=== PATIENT | male | born 1960 | race Caucasian/White ===

== ENCOUNTER 2018-08-06 11:37 | Emergency (ER) | payer BC, OTHER ==
[2018-08-06 12:46] LABS: BEDSIDE GLUCOSE 90 MG/DL (70-105)
[2018-08-06 12:48] LABS: BASO % 0.4 % (0.0-1.0); EOS # 0.1 10^3/uL (0.0-0.50); EOS % 0.8 % (0.0-3.0); HEMATOCRIT 47.2 % (42.0-52.0); HEMOGLOBIN 16.4 g/dl (13.5-17.5); IMMATURE GRANULOCYTE % 0.1 % (0-3.0); LYMPH # 1.5 10^3/uL (1.5-4.5); LYMPH % 19.8 % (24.0-44.0); MEAN CORPUSCULAR HEMOGLOBIN 31.8 pg (27.0-33.0); MEAN CORPUSCULAR HGB CONC 34.7 g/dl (32.0-36.5); MEAN CORPUSCULAR VOLUME 91.7 fl (80.0-96.0); MONO # 0.5 10^3/uL (0.0-0.8); MONO % 7.1 % (0.0-5.0); NEUTROPHILS # 5.5 10^3/uL (1.8-7.7); NEUTROPHILS % 71.8 % (36.0-66.0); PLATELET COUNT, AUTOMATED 244 10^3/uL (150-450); RED BLOOD COUNT 5.15 10^6/uL (4.30-6.10); RED CELL DISTRIBUTION WIDTH 12.1 % (11.5-14.5); WHITE BLOOD COUNT 7.6 10^3/uL (4.0-10.0)
[2018-08-06 13:28] LABS: ANION GAP 8 MEQ/L (8-16); BLOOD UREA NITROGEN 20 MG/DL (7-18); CALCIUM LEVEL 8.9 MG/DL (8.5-10.1); CARBON DIOXIDE LEVEL 28 MEQ/L (21-32); CHLORIDE LEVEL 105 MEQ/L (98-107); CK-MB VALUE MASS < 1.0 NG/ML (<3.6); CPK CREATINE PHOSPHOKINASE 121 U/L (39-308); CREATININE FOR GFR 0.96 MG/DL (0.70-1.30); FREE T4 0.94 NG/DL (0.76-1.46); GLOMERULAR FILTRATION RATE > 60.0 (>56); GLUCOSE, FASTING 92 MG/DL (70-100); MB/CK RELATIVE INDEX 0.83 (< OR =4); POTASSIUM SERUM 4.6 MEQ/L (3.5-5.1); SODIUM LEVEL 141 MEQ/L (136-145); TROPONIN I < 0.02 NG/ML (< 0.10)
[2018-08-06 14:26] LABS: CPK CREATINE PHOSPHOKINASE 122 U/L (39-308); TROPONIN I < 0.02 NG/ML (< 0.10)
== END 2018-08-06 14:58 | disposition home or self-care (01) ==
LOC: M ED 11:37
DX: R55 Syncope and collapse (principal); Z79.899 Other long term (current) drug therapy
CPT/HCPCS: 71045

== ENCOUNTER → 2018-08-06 | Outpatient (CLI) | payer BC | LOC: M EKG 15:02 | DX: R55 Syncope and collapse (principal) | CPT/HCPCS: 93225 ==

== ENCOUNTER → 2019-10-31 | Outpatient (CLI) | payer OTHER ==
[~2019-10-31] MED LIST: 24hr Holter XX; GLUC100020 PO; GNP1000T11 PO
--- NOTE | 2019-10-31 08:39 | REPPI ---
PA and lateral chest: Comparison is the portable chest dated 08/06/2018. The lung paz are clear. The cardiac size is normal. The tom, mediastinum, and skeletal structures are unremarkable. Impression: Negative PA and lateral chest. There is no interval change. Electronically Signed by Aman aMthews MD 10/31/2019 08:31 A
--- NOTE | 2019-10-31 08:49 | REPPI ---
KUB: Two views. HISTORY: Kidney stone. No available comparison prior studies. FINDINGS: There is a irregularly shaped 7 mm calcific opacity overlying the left psoas margin which could be a ureteral stone. Bowel gas pattern is normal. Flank stripes and psoas margins are intact. No mass or organomegaly is seen. No other urinary tract calculus is visible. IMPRESSION: Calcific opacity over the left psoas may be a mid ureteral stone, 7 mm in diameter. Electronically Signed by Go James MD 10/31/2019 10:59 A
[2019-10-31 11:01] LABS: INR 1.08; PROTHROMBIN TIME 13.7 SECONDS (11.8-14.0)
[2019-10-31 11:02] LABS: PARTIAL THROMBOPLASTIN TIME 32.3 SECONDS (25.0-38.4)
== END ==
LOC: M PLAIMG 08:04
PROVIDERS: ATTEND Nurse Practitioner Family
DX: Z01.818 Encounter for other preprocedural examination (principal); N20.0 Calculus of kidney

== ENCOUNTER → 2019-10-31 | Outpatient (CLI) | payer OTHER ==
--- NOTE | 2019-10-31 18:48 | ECGEPIP ---
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 No change from 08/06/18. Electronically Signed on 10-31-2019 18:47:59 EST by Edgardo Andres
== END ==
LOC: M EKG 08:37
PROVIDERS: ATTEND Nurse Practitioner Family
DX: Z01.818 Encounter for other preprocedural examination (principal); N20.0 Calculus of kidney

== ENCOUNTER 2019-11-02 06:50 | Day surgery (SDC) | payer OTHER ==
[~2019-11-02] VITALS: Ht 177.8 cm; Wt 96.2 kg
[~2019-11-02 06:50] MED LIST changes: +ceFAZolin SOD 2 GM in IV 1 EA IV ONE
--- NOTE | 2019-11-02 08:15 | REP ---
Supine abdomen single AP view for renal calculus: Comparison is 10/31/2019. There is a 7 mm calcification adjacent to the tip of of the left L3 transverse process, unchanged in position. The bowel gas pattern is normal. Skeletal structures are unremarkable. Impression: 7 mm calcification on the left, unchanged in position. Electronically Signed by Aman Mathews MD 11/02/2019 08:07 A
[2019-11-02] MEDS ORDERED: propofoL 200 MG/20 ML VIAL As Ordered ONE (08:50)
[2019-11-02] MEDS ORDERED: LIDOCAINE 2% INJ 100 MG/5 ML SDV (FOR ANES.) As Ordered ONE (08:50)
[2019-11-02] MEDS ORDERED: fentaNYL 100 MCG/2 ML INJECTION (J3010) As Ordered ONE (09:19)
[2019-11-02] MEDS ORDERED: ONDANSETRON 4MG/2ML VIAL (J2405) As Ordered ONE (09:19)
[2019-11-02 10:40] VITALS: BP 122/68
--- NOTE | 2019-11-02 17:53 | RO ---
DATE OF PROCEDURE: 11/02/2019 PREPROCEDURE DIAGNOSIS: Left ureteral stone. POSTPROCEDURE DIAGNOSIS: Left ureteral stone. PROCEDURE: Left extracorporeal shock wave lithotripsy. SURGEON: Dr. Carmelo Guevara TRIAGE ASSISTANT: None ANESTHESIA: Monitored anesthesia care (MAC). OPERATIVE INDICATIONS: This is a 59-year-old male who was found to have an obstructing 7 mm proximal left ureteral stone. He was brought to the operating room today for treatment. DESCRIPTION OF PROCEDURE: The patient was brought to the operating room and MAC anesthesia was administered. Prophylactic antibiotics were infused. He was then placed in the supine position in preparation for a left-sided extracorporeal shock wave lithotripsy. Fluoroscopy was utilized to monitor stone position and fragmentation. Shock waves were then delivered to the left-sided ureteral stone, ungated. There were no arrhythmias. The stone did appear to fragment well. After 2500 shocks, the procedure was concluded. The patient was then awakened from anesthesia and transported to the recovery room in stable condition. Estimated blood loss: 0 mL. Complications: None. Specimens: None. Plan: The patient will followup in the clinic in a few weeks with imaging prior to assess for residual stone burden. CHEL[place]
== END 2019-11-02 10:40 | disposition home or self-care (01) ==
LOC: M SDC 06:50
PROVIDERS: ATTEND Urology
DX: N20.1 Calculus of ureter (principal); M25.569 Pain in unspecified knee; J30.1 Allergic rhinitis due to pollen; K21.9 Gastro-esophageal reflux disease without esophagitis; R11.0 Nausea; Z79.899 Other long term (current) drug therapy
CPT/HCPCS: 50590; 74018; J0690; J2405; J3010